=== PATIENT | female | born 1995 | race Caucasian/White ===

== ENCOUNTER 2021-06-29 21:40 | Emergency (ER) | payer OTHER ==
[2021-06-29] MEDS ORDERED: LAMICTAL100 MG PO (22:36)
[2021-06-29] MEDS ORDERED: TRAZODONE 50MG50 MG PO (22:36)
[2021-06-29 23:34] LABS: BASOPHIL 0.5 % (0-2); EOSINOPHIL 2.8 % (0-5); HCT 44.7 % (37.0-47.0); HGB 14.9 g/dl (12.5-16.0); LYMPHOCYTE 45.5 % (15-48); MCH 30.1 pg (25.0-31.0); MCHC 33.3 g/dL (32.0-36.0); MCV 90.3 fL (78.0-100.0); MONOCYTE 5.3 % (0-12); MPV 11.2 fL (6.0-9.5); NEUTROPHIL 45.7 % (41-80); NRBC 0; PLT 223 K/uL (150-400); RBC 4.95 M/uL (4.20-5.40); RDW 11.9 % (11.5-14.0); WBC 5.8 K/uL (4.0-10.5)
[2021-06-30 01:01] LABS: ALBUMIN 3.7 g/dL (3.4-5.0); BILIRUBIN - TOTAL 0.4 mg/dL (0.2-1.0); BUN/CREAT RATIO (CALC) 22.9 RATIO; CREATININE 0.7 mg/dL (0.51-0.95); GLOBULIN (CALCULATION) 2.4 g/dL; POTASSIUM 3.5 mmol/L (3.5-5.1); TOTAL PROTEIN 6.1 g/dL (6.4-8.2)
[2021-06-30] MEDS ORDERED: MOTRIN600 MG PO (02:10)
== END 2021-06-30 02:25 | disposition home or self-care (01) ==
LOC: FER 21:40
PROVIDERS: Internal Medicine
DX: U07.1 COVID-19 (principal); Z23 Encounter for immunization; Z88.0 Allergy status to penicillin; Z88.5 Allergy status to narcotic agent
CPT/HCPCS: 36415; 71045; 80053; 84484; 85025; J1885; J7030; M0243; Q0244